=== PATIENT | female | born 1965 | race Caucasian/White ===

== ENCOUNTER → 2020-07-28 | Outpatient (REF) | payer OTHER ==
[2020-07-28 18:02] LABS: C REACTIVE PROTEIN QUANTITATIV < 0.30 MG/DL (0.00-0.30); RHEUMATOID FACTOR QUANT < 10.0 IU/ML (<15.0)
== END ==
LOC: M SFHCRHEU 15:04
PROVIDERS: ATTEND Internal Medicine
DX: M19.049 Primary osteoarthritis, unspecified hand (principal)

== ENCOUNTER → 2020-07-29 | Outpatient (CLI) | payer OTHER ==
--- NOTE | 2020-07-30 03:26 | REP ---
INDICATION: PRIMARY OSTEOARTHRITIS, UNSPECIFIED HAND COMPARISON: None. TECHNIQUE: AP, lateral, bilateral oblique views right and left hand. FINDINGS: Left hand demonstrates moderate osteoarthritic changes involving the interphalangeal joints including periarticular sclerosis/heterogeneity, joint space narrowing, and marginal osteophyte formation with mild periarticular soft tissue swelling. No significant articular loose bodies, cystic changes, or obvious chondrocalcinosis noted. Early advanced changes at the 1st carpometacarpal joint include significant heterogeneity to the base of the 1st phalanx as well as the underlying trapezium with some elements of erosive/lytic change, joint space narrowing and subluxation. No acute fracture or dislocation noted. Right hand demonstrates moderate to advanced osteoarthritic changes involving the interphalangeal joints including periarticular sclerosis/heterogeneity, joint space narrowing, and marginal osteophyte formation primarily noted at 3rd and 4th and 5th distal interphalangeal joints and 5th proximal interphalangeal joint. The 1st carpometacarpal joint appears relatively intact. No acute fracture or dislocation noted. IMPRESSION: Moderate to advanced osteoarthritic degenerative changes. No acute fracture or dislocation. <Electronically signed by Brad Avila > 07/30/20 [id number]
== END ==
LOC: M RAD 12:17
PROVIDERS: ATTEND Internal Medicine
DX: M19.041 Primary osteoarthritis, right hand (principal); M19.042 Primary osteoarthritis, left hand